=== PATIENT | male | born 2000 | race Caucasian/White ===

== ENCOUNTER 2020-05-04 01:28 | Emergency (ER) | payer OTHER ==
[~2020-05-04] VITALS: Ht 193 cm; Wt 90.9 kg
[2020-05-04 01:39] VITALS: BP 102/67; TEMP 97.7
[2020-05-04] MEDS ORDERED: VYVANSE50 MG PO (01:42)
[2020-05-04] MEDS ORDERED: ADDERALL10 MG PO (01:43)
[2020-05-04] MEDS ORDERED: NORCO 325 MG-51 TAB PO (02:10)
[2020-05-04 02:34] VITALS: PULSE 80
== END 2020-05-04 02:34 | disposition home or self-care (01) ==
LOC: COL.ER 01:28
DX: S52.501A Unspecified fracture of the lower end of right radius, initial encounter for closed fracture (principal); F90.9 Attention-deficit hyperactivity disorder, unspecified type; W01.10XA Fall on same level from slipping, tripping and stumbling with subsequent striking against unspecified object, initial encounter
CPT/HCPCS: Q4021; Q4050